=== PATIENT | male | born 1965 | race Caucasian/White ===

== ENCOUNTER 2022-04-28 02:52 | Day surgery (SDC) | payer OTHER, SELFPAY ==
[2022-04-11 12:00] VITALS: BMI 30.6
--- NOTE | 2022-04-28 07:30 | WPDANESEPPF ---
Anes - Initial Pre Proc Eval Procedure: Operation Date: 04/28/22 08:30 Proposed Procedures p Screening Colonoscopy - Bry Sylvester MD Date/Time: 04/28/22 07:30 Surgeon: Bry Sylvester MD Pre Op Diagnosis: neoplasm screening Patient Data Age: 57 Gender: M Height: 1.83 m Weight: 102.3 kg Allergies Allergy/AdvReac Type Severity Reaction Status Date / Time No Known Allergies Allergy Mild Verified 04/28/22 07:33 Home Medications Medication Instructions Recorded Confirmed Type losartan 50 mg tablet 25 mg PO DAILY 04/11/22 04/11/22 History Patient hx anesthesia problems: none Family hx anesthesia problems: none Results Review: All pre-operative results and documents have been reviewed as part of the pre-operative evaluation. [facility] Past Medical History Medical History (Updated 04/28/22 @ 07:30 by Bart Sánchez DO) Dupuytren contracture Hyperlipidemia Hypertension Impaired fasting glucose Family History Family History Father Hypertension Diabetes mellitus Mother Family history of malignant neoplasm of breast in first degree relative Grandparent Carcinoma of colon Social History Social History Smoking status: Never smoker Second hand tobacco smoke exposure: No Alcohol intake: current Drinks per week: 1 Substance use: never Substance use type: does not use Living arrangements: with family Gender identity (if verbalized by the patient): Male Sexual Orientation (if Verbalized by the Patient): Straight or Heterosexual Spiritual care concerns: No Anes - Eval Final PreProcedure Day of Procedure 04/28/22 07:30 Patient weight: obese Heart: regular rate and rhythm Lungs: clear to auscultation Airway: Mallampati scale class II Neurological: alert and oriented Last oral intake: >/= 8 hours ASA classification: II Emergent: no Anesthetic plan: proceed Anesthesia type and monitoring: general GIVS and standard monitoring Results Review: All pre-operative results and documents have been reviewed as part of the pre-operative evaluation. Informed Consent: The patient's anesthetic plan and its attendant risks and benefits were discussed with the patient/family/POA. Questions were solicited and answers provided to the satisfaction of the patient/family/POA.
[2022-04-28 07:34] VITALS: BP 141/94; PULSE 73; RESP 18; TEMP 36.2; O2SAT 98
[2022-04-28] MEDS: LACTATED RINGERS 1,000 ML 150 ML IV CONT (07:41)
--- NOTE | 2022-04-28 08:18 | PM.HPGS ---
History of Present Illness History of Present Illness Consent: Risks, benefits, and alternatives have been discussed and questions answered. Patient agrees to proceed with procedure. Chief complaint: neoplasm screening Narrative: Stanley Mccall is a 57 year old male Presents for screening colonoscopy. Patient's current weight appetite and bowel movements are normal. Patient denies abdominal pain. He has had no bleeding. Family history is significant his grandfather had colon cancer. His mother had breast cancer. Patient's last colonoscopy 2009 was unremarkable. Patient presents today for screening colonoscopy. Review of Systems Review of Systems: Review of systems noncontributory. [facility] Past Medical History Medical History (Updated 04/28/22 @ 07:30 by Bart Sánchez DO) Dupuytren contracture Hyperlipidemia Hypertension Impaired fasting glucose Family History Family History Father Hypertension Diabetes mellitus Mother Family history of malignant neoplasm of breast in first degree relative Grandparent Carcinoma of colon Social History Social History Smoking status: Never smoker Second hand tobacco smoke exposure: No Alcohol intake: current Drinks per week: 1 Substance use: never Substance use type: does not use Living arrangements: with family Gender identity (if verbalized by the patient): Male Sexual Orientation (if Verbalized by the Patient): Straight or Heterosexual Spiritual care concerns: No Meds Home Medications and Allergies Home Medications Medication Instructions Recorded Confirmed Type losartan 50 mg tablet 25 mg PO DAILY 04/11/22 04/11/22 History Allergies Allergy/AdvReac Type Severity Reaction Status Date / Time No Known Allergies Allergy Mild Verified 04/28/22 07:33 Vital Signs Vital Signs - 24 hr 04/28/22 07:34 Temperature 97.2 F L Pulse Rate 73 Respiratory Rate 18 Blood Pressure 141/94 H Pulse Oximetry 98 Oxygen Delivery Room Air Exam Narrative: Physical exam reveals patient to be alert. Vital signs stable. HEENT exam is unremarkable. Patient is anicteric. Lungs are clear to auscultation and percussion. Heart is without murmur or extra sounds. Abdomen bowel sounds are present soft nontender with no organomegaly. Digital external rectal exam is normal. Assessment and Plan Assessment and plan (1) Encounter for screening colonoscopy: Code(s): Z12.11 - Encounter for screening for malignant neoplasm of colon Status: Acute Assessment and Plan: Patient presents today for screening colonoscopy. Further recommendations will be given after endoscopy.
[2022-04-28 08:47] VITALS: BP 128/86; PULSE 67; RESP 15; O2SAT 98
[2022-04-28 08:57] VITALS: BP 132/87; PULSE 73; RESP 17; O2SAT 97
[2022-04-28 09:07] VITALS: BP 147/86; PULSE 66; RESP 15; O2SAT 98
== END 2022-04-28 09:23 | disposition home or self-care (01) ==
PROVIDERS: PCP Family Medicine; Visit Provider Internal Medicine Gastroenterology
PROC: 0DJD8ZZ Inspection of Lower Intestinal Tract, Via Natural or Artificial Opening Endoscopic (ICD-10-PCS; CPT 45378; principal; 2022-04-28 08:30)
DX: Z12.11 Encounter for screening for malignant neoplasm of colon (principal); D12.5 Benign neoplasm of sigmoid colon; K64.8 Other hemorrhoids; M72.0 Palmar fascial fibromatosis [Dupuytren]; I10 Essential (primary) hypertension; E78.5 Hyperlipidemia, unspecified; R73.01 Impaired fasting glucose
CPT/HCPCS: 45385; 88305; J2704; J7120